=== PATIENT | male | born 1985 | race African-American/Black ===

== ENCOUNTER 2023-12-16 09:08 | Emergency (ER) | payer OTHER ==
[2023-12-16 09:19] VITALS: BP 134/62; PULSE 65; RESP 20; TEMP 98.4; BMI 28.1
[2023-12-16 10:03] LABS: PH,URINE 6.5 (5.0-8.0); URINE APPEARANCE CLEAR; URINE BILIRUBIN NEGATIVE (NEGATIVE); URINE COLOR YELLOW; URINE GLUCOSE (UA) NEGATIVE (NEGATIVE); URINE KETONE NEGATIVE (NEGATIVE); URINE LEUK ESTERASE NEGATIVE (NEGATIVE); URINE NITRITE NEGATIVE (NEGATIVE); URINE PROTEIN NEGATIVE (NEGATIVE); URINE UROBILINOGEN 0.2 mg/dL (0.2-1.0)
[2023-12-16] MEDS ORDERED: valACYclovir HCL 500 MG TABLET (FP) ONE (11:25)
[2023-12-16] MEDS: valACYclovir HCL 500 MG TABLET (FP) PO ONE (11:28)
[2023-12-16 13:19] LABS: HIV INTERPRETATION NEGATIVE (NEGATIVE)
== END 2023-12-16 11:29 | disposition home or self-care (01) ==
LOC: JER 09:08
DX: R30.0 Dysuria (principal); B00.9 Herpesviral infection, unspecified
CPT/HCPCS: 36415; 81003; 82962; 86803; 87086; 87389; 87491; 87591; 87661; 99283-25

== ENCOUNTER 2024-06-13 06:26 | Day surgery (SDC) | payer OTHER ==
[2024-06-12 10:23] VITALS: BMI 23.8
[2024-06-13] MEDS ORDERED: SIMETHICONE 40 MG/0.6 ML BOTTLE ONE (07:21)
[2024-06-13 08:22] VITALS: TEMP 97.9
[2024-06-13 08:39] VITALS: BP 107/69; PULSE 66; RESP 22
== END 2024-06-13 08:45 | disposition home or self-care (01) ==
LOC: JASU-ENDO 06:26
PROVIDERS: ATTEND Internal Medicine Gastroenterology
PROC: 0DB78ZX Excision of Stomach, Pylorus, Via Natural or Artificial Opening Endoscopic, Diagnostic (ICD-10-PCS; 2024-06-13)
PROC: 0DB68ZX Excision of Stomach, Via Natural or Artificial Opening Endoscopic, Diagnostic (ICD-10-PCS; principal; 2024-06-13 07:30)
DX: K29.50 Unspecified chronic gastritis without bleeding (principal)
CPT/HCPCS: 88305-TC; 88342-TC